=== PATIENT | male | born 1940 | race Caucasian/White ===

== ENCOUNTER 2022-12-25 10:33 | Inpatient (IN) | payer MEDICARE, OTHER ==
[2022-12-20 14:19] LABS: CLARITY,URINE CLEAR (Clear); COLOR,URINE YELLOW (Yellow); GLUCOSE, URINE NEGATIVE (Neg); KETONES,URINE NEGATIVE (Neg); LEUKOCYTE ESTERASE ,URINE NEGATIVE (Neg); NITRITES, URINE NEGATIVE (Neg); OCCULT BLOOD,URINE NEGATIVE (Neg); PROTEIN,URINE NEGATIVE (Neg); UROBILINOGEN,URINE 0.2 E.U/dL (0.2-1.0)
[2022-12-20 14:21] LABS: UA COLLECTION TYPE CLN CATCH MIDSTREAM
[2022-12-20 15:00] LABS: BASOPHILS # (AUTO) 0.1 X10'3 (0-0.2); BASOPHILS % (AUTO) 1.3 % (0-1); EOSINOPHILS # (AUTO) 0.2 X10'3 (0-0.9); EOSINOPHILS % (AUTO) 2.7 % (0-6); LYMPHOCYTES # (AUTO) 1.5 X10'3 (1.1-4.8); LYMPHOCYTES % (AUTO) 20.6 % (21-51); MEAN CORPUSCULAR HEMOGLOBIN 28.6 PG (27.0-31.0); MEAN CORPUSCULAR HGB CONC 32.9 g/dL (33.0-36.5); MEAN PLATELET VOLUME 7.6 FL (7.4-10.4); MONOCYTES # (AUTO) 0.5 X10'3 (0-0.9); MONOCYTES % (AUTO) 6.2 % (2-12); NEUTROPHILS # (AUTO) 5.1 X10'3 (1.8-7.7); NEUTROPHILS % (AUTO) 69.2 % (42-75); PRE OP HEMATOCRIT 40.9 % (42.0-52.0); PRE OP HEMOGLOBIN 13.5 g/dL (14.0-17.9); PRE OP PLATELET COUNT 220 X10'3 (140-440); RED BLOOD COUNT 4.71 X10'6 (4.70-6.10); RED CELL DISTRIBUTION WIDTH 18.9 % (11.5-14.5)
[2022-12-20 15:19] LABS: ALBUMIN 3.6 G/DL (3.4-5.0); ALBUMIN/GLOBULIN RATIO 0.9 (1.1-1.5); ALKALINE PHOSPHATASE 66 IU/L (46-116); BLOOD UREA NITROGEN 17 MG/DL (7-18); BUN/CREATININE RATIO 16.2 (10.0-20.0); CALCIUM 9.2 MG/DL (8.5-10.1); CHLORIDE 103 MMOL/L (99-107); CREATININE 1.05 MG/DL (0.60-1.10); PRE OP ALT 22 U/L (30-65); PRE OP ANION GAP 9 (8-16); PRE OP AST 24 U/L (10-37); PRE OP BILIRUB, TOTAL 0.3 MG/DL (0.0-1.0); PRE OP POTASSIUM 4.5 MMOL/L (3.4-5.1); PRE OP SODIUM 140 MMOL/L (135-145); TOTAL CARBON DIOXIDE 28.1 MMOL/L (24-32); TOTAL PROTEIN 7.7 G/DL (6.4-8.2); eGFR 68 ML/MIN
[2022-12-20 15:29] LABS: ANISOCYTOSIS 2+; PLATELET ESTIMATE NORMAL
[2022-12-20 15:40] LABS: PRE OP GLUCOSE 208 MG/DL (70-104)
[2022-12-25] VITALS (23 sets, daily range): BP systolic 109–162; BP diastolic 45–119
[~2022-12-25] VITALS: Ht 172.7 cm; Wt 99.0 kg
[~2022-12-25 10:33] MED LIST: ASCO-356 PO; ATOR20TA PO; CHOL50004 PO; GARL1000 PO; GLUC1TAB21 PO; LISI20TA28 PO; NIAC500C12 PO; PCA WASTE DOCUMENTATION 1 MG ML MC SCH; SITA1TAB6 PO; TRIA1TAB94 PO; VITA1CAP45 PO; clindamycin-Cleocin 900mg/D5W 50 ML IV ONE; famotidine 20mg tablet PO ONE
[2022-12-25] MEDS: ringers solution, lacted 1,000 ML IV SCH (12:34)
[2022-12-25] MEDS ORDERED: ondansetron/PF 4mg/2ml inj IV PRN ×2 (13:05→16:05)
[2022-12-25] MEDS ORDERED: naloxone 0.4 mg/ml inj IV PRN (13:05)
[2022-12-25] MEDS ORDERED: normal saline 1000ml 1,000 ML IV SCH (13:05)
[2022-12-25] MEDS ORDERED: rocuronium 10mg/ml inj IV ONE (15:32)
[2022-12-25] MEDS ORDERED: propofol inj 20 ML IV ONE (15:32)
[2022-12-25] MEDS ORDERED: fentaNYL/PF 50MCG/1 ML 2ML syringe ONE ×2 (15:32→16:38)
[2022-12-25] MEDS ORDERED: LIDOcaine 2% (20mg/ml) 5ml vial ONE (15:32)
[2022-12-25] MEDS ORDERED: ondansetron/PF 4mg/2ml inj ONE (15:43)
[2022-12-25] MEDS ORDERED: labetalol 20mg/4ml (5mg/ml) syringe IV PRN (16:05)
[2022-12-25] MEDS ORDERED: fentaNYL/PF 50MCG/1 ML 2ML syringe IV PRN ×2 (16:05)
[2022-12-25] MEDS ORDERED: ringers solution, lacted 1,000 ML IV SCH (16:05)
[2022-12-25] MEDS ORDERED: morphine 2 MG/ML inj. syringe IV PRN (16:05)
[2022-12-25] MEDS ORDERED: morphine 4 MG/ML inj SYRINge IV PRN (16:05)
[2022-12-25] MEDS ORDERED: hydrALAZINE 20mg/ml inj. IV PRN (16:05)
[2022-12-25] MEDS ORDERED: sugammadex 200mg/2ml injection IV ONE (16:07)
[2022-12-25] MEDS ORDERED: ROPIVAcaine 0.5% (5mg/ml) 30ml vial ONE (16:27)
[2022-12-25] MEDS ORDERED: albumin (Human) 5% 250ml 250 ML IV ONE (16:28)
--- NOTE | 2022-12-25 16:51 | NUR ---
Received from OR via HOSPITAL BED TO RECOVERY ROOM 7, accompanied by Anesthesiologist DR BRENNAN and report given by Anesthesiolgist. PT PRESENTS WITH 20G LEFT HAND, ABD DRESSING WITH [place] DRESSING, 2X 15 LIBIA DRAINS. PT COMPLAIN OF O/10 PAIN, 30MLS ROPIVICAINE IM ABD SITE, SP02 6L 99%, VSS. Addendum: 12/25/22 at 1708 by Constance Victoria RN, RN Amended: Links added.
[2022-12-25] MEDS ORDERED: ROPIVAcaine 0.5% (5mg/ml) 30ml vial IJ ONE (16:59)
[2022-12-25] MEDS: HYDROmorph/NS 0.2 mg/ml PCA 100 ML IV SCH ×5 (17:00→23:00)
--- NOTE | 2022-12-25 18:27 | NUR ---
PT LEFT DRAIN APROX 10MLS OUTPUT, DRAINED EMPTIED. NO OUTPUT IN RIGHT DRAIN
--- NOTE | 2022-12-25 19:11 | NUR ---
Report called to receiving nurse BHUMIKA VILLALBA. Transferred via HOSPITAL BED TO ROOM 359B. BED IN LOW LOCKCED POSITION, CALL CHELSEA IN REACH, PT HOOKED UP TO POST OP VITALS MACHINE. TWO PT BELOINGING BAGS AND DENTURES TO ROOM 359B. BHUMIKA VILLALBA AT BEDSIDE. Special Issues communicated to receiving nurse. Addendum: 12/25/22 at 1929 by Constance Victoria RN RN Amended: Links added.
[2022-12-25] MEDS ORDERED: [UNRECOGNIZED DRUG - MIXTURE] PO SCH (20:00)
[2022-12-25] MEDS: sennosides/docusate sodium tablet PO SCH (20:42)
[2022-12-25] MEDS: docusate sod 100mg capsule PO SCH (20:44)
[2022-12-25] MEDS ORDERED: atorvastatin 20mg tablet PO SCH (21:00)
[2022-12-25] MEDS ORDERED: ascorbic acid 500mg tablet PO SCH (21:00)
[2022-12-25] MEDS: clindamycin-Cleocin 900mg/D5W 50 ML IV SCH (23:28)
[2022-12-26] MEDS: HYDROmorph/NS 0.2 mg/ml PCA 100 ML IV SCH ×5 (01:00→09:00)
[2022-12-26] MEDS: ringers solution, lacted 1,000 ML IV SCH (03:12)
[2022-12-26 06:14] LABS: ALBUMIN 3.3 G/DL (3.4-5.0); ANION GAP 6 (8-16); BLOOD UREA NITROGEN 19 MG/DL (7-18); BUN/CREATININE RATIO 18.8 (10.0-20.0); CALCIUM 8.8 MG/DL (8.5-10.1); CHLORIDE 102 MMOL/L (99-107); CREATININE 1.01 MG/DL (0.60-1.10); GLUCOSE 231 MG/DL (70-104); SODIUM 137 MMOL/L (135-145); TOTAL CARBON DIOXIDE 28.6 MMOL/L (24-32); eGFR 71 ML/MIN
[2022-12-26 06:21] LABS: BASOPHILS % (AUTO) 0.2 % (0-1); EOSINOPHILS % (AUTO) 0 % (0-6); HEMATOCRIT 36.7 % (42.0-52.0); HEMOGLOBIN 12.2 g/dl (14.0-17.9); LYMPHOCYTES % (AUTO) 9.2 % (21-51); MEAN CORPUSCULAR HGB CONC 33.3 g/dL (33.0-36.5); MEAN CORPUSCULAR VOLUME 87.1 FL (78-98); MEAN PLATELET VOLUME 7.5 FL (7.4-10.4); MONOCYTES # (AUTO) 0.7 X10'3 (0-0.9); MONOCYTES % (AUTO) 6.3 % (2-12); NEUTROPHILS % (AUTO) 84.3 % (42-75); PLATELET COUNT 203 X10'3 (140-440); RED BLOOD COUNT 4.21 X10'6 (4.70-6.10); RED CELL DISTRIBUTION WIDTH 18.2 % (11.5-14.5); WHITE BLOOD COUNT 10.7 X10'3 (4.5-11.0)
--- NOTE | 2022-12-26 06:41 | NUR ---
Patient in room [facility]. I have received report from romulo gorman and had the opportunity to ask questions and assume patient care.
[2022-12-26 06:48] VITALS: BP 121/68
[2022-12-26] MEDS: sennosides/docusate sodium tablet PO SCH (07:31)
[2022-12-26] MEDS: clindamycin-Cleocin 900mg/D5W 50 ML IV SCH ×2 (07:31→07:43)
[2022-12-26] MEDS: docusate sod 100mg capsule PO SCH (07:34)
[2022-12-26] MEDS ORDERED: non-formulary drug (Garlic 1 CAP) PO SCH (08:00)
[2022-12-26] MEDS ORDERED: lisinopril 10 MG tablet PO SCH (08:00)
[2022-12-26] MEDS ORDERED: vitamin B comp w/Vit. C tab 1 TAB TABLET PO SCH (08:00)
[2022-12-26] MEDS ORDERED: cholecalciferol (vitamin D3) 1,000 unit (25mcg) tablet PO SCH (08:00)
[2022-12-26] MEDS ORDERED: niacin 500mg ER (Niaspan) tablet PO SCH (08:00)
[2022-12-26] MEDS ORDERED: SITAGLIPTIN PHOS PO SCH (08:00)
[2022-12-26] MEDS ORDERED: METFORMIN HCL PO SCH (08:00)
[2022-12-26] MEDS ORDERED: triamterene/HCTZ 37.5/25mg tablet PO SCH (08:00)
[2022-12-26 08:49] VITALS: BP 121/68
[2022-12-26 10:00] VITALS: BP 132/71
[2022-12-26] MEDS ORDERED: IBUP-1984 PO (11:53)
[2022-12-26 12:00] VITALS: BP 114/83
[2022-12-26] MEDS ORDERED: ibuprofen tablet 400 MG TABLET PO ONE (12:15)
--- NOTE | 2022-12-26 12:44 | NUR ---
PT DISCHARGED IN STABLE CONDITION. LEFT FACILITY WITH FAMILY. PT AWARE HE IS TO CALL AND MAKE FOLLOW UP WITH DR LOPEZ. EDUCATION WAS PROVIDED FOR LIBIA DRAINS, SUPPLIES GIVEN. PT EDUCATED ON WOUND CARE, PT AWARE HE IS OK TO SHOWER TOMORROW. IV DC CANULA INTACT. ALL QUESTIONS ANSWERED.
[2022-12-26] MEDS ORDERED: PCA WASTE DOCUMENTATION 1 MG ML MC SCH ×3 (13:10)
== END 2022-12-26 12:31 | disposition home or self-care (01) | DRG 355 ==
LOC: PAS 10:33 → PAS IN 13:21 → SUR 3N 19:07 → UNDODISIN 12-26 12:32
PROVIDERS: ADMIT Surgery; ATTEND Surgery
PROC: 0WQF0ZZ Repair Abdominal Wall, Open Approach (ICD-10-PCS; principal; 2022-12-25 15:27)
DX: K43.2 Incisional hernia without obstruction or gangrene (principal); E11.9 Type 2 diabetes mellitus without complications; I10 Essential (primary) hypertension; E78.00 Pure hypercholesterolemia, unspecified; Z98.1 Arthrodesis status; Z87.442 Personal history of urinary calculi; Z90.49 Acquired absence of other specified parts of digestive tract
CPT/HCPCS: 36415; 80048; 80053; 81003; 82948; 85008; 85025; 93005; A4618; A6253; A6449; A7000; G0378; J1170; J2405; J2704; J2795; J3010; J3490; J7120; P9045